=== PATIENT | male | born 1980 | race Caucasian/White ===

== ENCOUNTER → 2020-03-17 | Outpatient (CLI) | payer BC, OTHER ==
[~2020-03-17] MED LIST: FLEXERIL 10 MG10 MG PO; IBUPROFEN600 MG PO; Voltaren Gel 1 % TOP
[2020-03-17 14:06] LABS: HEMOGLOBIN 17.4 gm/dl (14.0-17.5); RED BLOOD COUNT 5.83 M/UL (4.20-5.50); WHITE BLOOD COUNT 8.2 K/UL (4.5-11.0)
[2020-03-17 14:42] LABS: BUN/CREATININE RATIO 9 (0-10)
[2020-03-18 09:13] LABS: FSH, SERUM <0.3 mIU/mL (1.5-12.4); PROLACTIN 12.4 ng/mL (4.0-15.2); VITAMIN D, 25-HYDROXY 19.5 ng/mL (30.0-100.0)
[2020-03-18 12:13] LABS: SEX HORM BINDING GLOB, SERUM 13.6 nmol/L (16.5-55.9)
[2020-03-18 22:08] LABS: TESTOSTERONE, SERUM 928 ng/dL (264-916)
[2020-03-19 06:10] LABS: ESTROGENS, TOTAL 213 pg/mL (40-115)
== END ==
LOC: LAB 13:03
PROVIDERS: Family Medicine
DX: E78.5 Hyperlipidemia, unspecified (principal); R53.83 Other fatigue; E29.1 Testicular hypofunction; E55.9 Vitamin D deficiency, unspecified
CPT/HCPCS: 36415; 80053; 80061; 82672; 83001; 83002; 84146; 84270; 84402; 84403; 84439; 84443; 84481; 85025